=== PATIENT | female | born 1995 | race Caucasian/White ===

== ENCOUNTER → 2017-12-30 16:44 | Outpatient (CLI) | payer OTHER, SELFPAY ==
--- NOTE | 2017-12-30 16:52 | CT_ITS ---
CT Abdomen And Pelvis W/ Contrast INDICATION: RLQ PAIN X 1.5 WEEKS WITH NAUSEA, PT HAS NUVARING COMPARISON: None TECHNIQUE: Axial CT imaging of the abdomen and pelvis with oral and intravenous contrast. Oral and sagittal reformatted images. Radiation dose optimization technique applied. FINDINGS: Visualized lung bases are clear. The heart size is normal. The liver, gallbladder, spleen, adrenal glands, and pancreas are unremarkable. The kidneys enhance contrast symmetrically bilaterally and I without evidence of hydronephrosis. Bowel loops are nondistended. Appendix is unremarkable. Oral contrast material is seen throughout the nondistended small bowel loops extending into the proximal colon. Large fecal material is seen throughout colon. A NuvaRing is present in the vaginal canal. There is no evidence of free air or free fluid. The osseous structures are grossly unremarkable. CT/Abdomen/Pelvis WITH Contrast IMPRESSION: No convincing CT evidence of acute intra-abdominal or pelvic pathology. Normal appendix. at 1945 Reported and signed by: Amena Rosales MD Electronically Signed: Amena Rosales MD at 18:44 EST Tel , Service support ,
[2017-12-30 17:23] LABS: ALB/GLOB Ratio 0.9 RATIO (0.9-2.4); AST(SGOT) 17 U/L (15-37); Alanine Aminotransfer ALT/SGPT 19 U/L (13-56); Albumin, Serum 3.7 g/dL (3.2-5.0); Alkaline Phosphatase 55 U/L (45-117); Anion Gap 7 (5-15); BUN 11 mg/dL (7-18); BUN/Creat Ratio 14.9 RATIO (10-20); CRP 4.56 mg/L (0.0-3.0); Calcium,Total 8.7 mg/dL (8.5-10.1); Chloride 105 mmol/L (98-107); Creatinine, Serum 0.74 mg/dL (0.55-1.02); EST Glomerular Filtration Rate 103 mL/min (>60); Est Glom Filt Rate - Afr Amer 125 mL/min (>60); Globulin 4.1 g/dL (2.2-4.2); Glucose 93 mg/dL (74-106); Potassium 3.7 mmol/L (3.5-5.1); Protein, Total 7.8 g/dL (6.4-8.2); Sodium Level 137 mmol/L (136-145)
[2017-12-30 17:38] LABS: Absolute Lymphocyte Count 1.56 X10^3/ul (0.83-4.51); Absolute Neutrophil Count 2.4 X10^3/uL (2.0-7.7); Basophil# 0.02 X10^3/uL; Basophil% 0.4 % (0-1); Eosinophil# 0.07 X10^3/uL; Eosinophils% 1.6 % (0-5); Hematocrit 38.9 % (37-47); Hemoglobin 13.4 g/dl (12.0-15.0); Lymphocyte # 1.56 X10^3/ul (4.0); Lymphocyte % 34.8 % (19-41); Mean Corp Hgb Conc 34.4 g/gl (32-36); Mean Corpuscular Hgb 32.1 pg (27.0-32.0); Mean Corpuscular Volume 93.3 fL (81-99); Mean Platelet Vol. 9.7 fl (6.2-12.0); Monocyte# 0.39 X10^3/uL; Monocyte% 8.7 % (0-10); Neutrophil # 2.44 X10^3/uL (2.7-7.7); Neutrophil % 54.5 % (47-70); Platelet Count 215 K/mm3 (150-450); RBC Distribution Width CV 12.3 % (11.6-14.6); RBC Distribution Width SD 41.4 fl (35.1-43.9); Red Blood Count 4.17 M/mm3 (4.2-5.4); White Blood Count 4.5 K/mm3 (4.4-11.0)
[2017-12-30 17:47] LABS: POSITIVE COUNT NO; POSITIVE DIFFERENTIAL NO; POSITIVE MORPHOLOGY NO
[2017-12-30 17:48] LABS: Erythrocyte Sedimentation Rate 8 mm/hr (0-20)
== END ==
PROVIDERS: Family Provider Internal Medicine; PCP Internal Medicine; Visit Provider Internal Medicine
DX: R10.31 Right lower quadrant pain (principal)
CPT/HCPCS: 36415; 74177; 80053; 85025; 85652; 86140; Q9967

== ENCOUNTER 2022-10-21 04:25 | Inpatient (IN) | payer OTHER, SELFPAY ==
[2022-10-21] VITALS (79 sets, daily range): BP systolic 88–168; BP diastolic 45–99; PULSE 64–137; TEMP 36.1–37.2; O2SAT 89–100; BMI 29.0
[2022-10-21] MEDS: Lactated Ringers 1,000 ML 200 ML IV ×4 (05:16→21:25)
[2022-10-21 05:32] LABS: Absolute Lymphocyte Count 1.85 X10^3/uL (0.83-4.51); Absolute Neutrophil Count 7.1 X10^3/uL (2.0-7.7); Basophil# 0.04 X10^3/uL; Basophil% 0.4 % (0-1); Eosinophil# 0.06 X10^3/uL; Eosinophils% 0.6 % (0-5); Hematocrit 31.8 % (37-47); Hemoglobin 10.6 g/dL (12.0-15.0); Lymphocyte # 1.85 X10^3/ul (0.83-4.51); Mean Corp Hgb Conc 33.3 g/dL (32-36); Mean Corpuscular Hgb 31.5 pg (27.0-32.0); Mean Corpuscular Volume 94.6 fL (81-99); Monocyte# 0.67 X10^3/uL; Monocyte% 6.9 % (0-10); NRBC Flagged by Analyzer 0 % (0-5); Neutrophil # 7.07 X10^3/uL (2.7-7.7); Neutrophil % 72.6 % (47-70); Platelet Count 160 K/mm3 (150-450); RBC Distribution Width CV 12.8 % (11.6-14.6); RBC Distribution Width SD 44.4 fl (35.1-43.9); Red Blood Count 3.36 M/mm3 (4.2-5.4); White Blood Count 9.7 K/mm3 (4.4-11.0)
[2022-10-21] MEDS: Oxytocin 15 Units/NS 250ml 15 UNITS/250 ML IV.SOLN 2 UNITS IV (08:06)
--- NOTE | 2022-10-21 08:34 | HP.PCM.OB_ITS ---
HPI - General General Date of Admission: 10/21/22 HPI Narrative PHILLIP SINGH, is a 27 F @ 40.6 weeks who presents with spontaneous rupture membranes at approximately 3 AM on 10/21/2022 thick meconium. Patient complaining of lower back pain. PFSH [facility] Medical History Asthma Home Medications no.58-iron bisglycinate 10 mg iron-folic acid 400 mcg capsule 1 cap PO DAILY 10/21/22 [History Last Taken 10/20/22] Allergy/AdvReac Type Severity Reaction Status Date / Time Environmental Allergies: Allergy Rash Verified 10/21/22 04:41 Uncoded [fragrances] Social History Smoking Status: Never smoker alcohol intake: current History Elective abortions Hx Para 0 Spontaneous abortions Hx # Term Pregnancies Ectopic pregnancies Hx # Pregnancies Multiple births # of living children NST FHR Rate Baby A Baseline: 140 Variability:: Moderate Accelerations:: 15 x 15 Decelerations:: None NST Reactive:: Yes FHR Category:: Category I Uterine Activity:: 2-5 Vital Signs Vital Signs Vital Signs: 10/21/22 04:28 10/21/22 04:28 10/21/22 04:28 Temperature Temperature Source Pulse Rate 76 Blood Pressure 128/88 H BP Systolic 128 BP Diastolic 88 Pulse Ox 97 10/21/22 04:28 10/21/22 04:28 10/21/22 04:28 Temperature 98.0 F Temperature Source Temporal Pulse Rate Blood Pressure BP Systolic BP Diastolic Pulse Ox 98 10/21/22 06:25 10/21/22 06:26 10/21/22 06:26 Temperature Temperature Source Pulse Rate 71 Blood Pressure 110/64 BP Systolic 110 BP Diastolic 64 Pulse Ox 98 10/21/22 07:08 10/21/22 07:08 10/21/22 07:18 Temperature 98.4 F Temperature Source Temporal Pulse Rate Blood Pressure 115/77 BP Systolic 115 BP Diastolic 77 Pulse Ox 10/21/22 07:18 10/21/22 07:19 10/21/22 07:19 Temperature Temperature Source Pulse Rate 75 78 Blood Pressure BP Systolic BP Diastolic Pulse Ox 99 10/21/22 07:21 10/21/22 07:21 10/21/22 08:11 Temperature 98.1 F Temperature Source Temporal Pulse Rate Blood Pressure 114/71 BP Systolic 114 BP Diastolic 71 Pulse Ox 10/21/22 08:11 10/21/22 08:12 10/21/22 08:12 Temperature Temperature Source Pulse Rate 74 78 Blood Pressure BP Systolic BP Diastolic Pulse Ox 98 10/21/22 08:11 Temperature 98.1 F Temperature Source Pulse Rate Blood Pressure BP Systolic BP Diastolic Pulse Ox Weight Weight: 81.6 kg Body Mass Index (BMI) 29.0 Physical Exam Const alert and oriented x3 General Appearance: cooperative HEENT normocephalic GI GI Narrative: Gravid, non tender to palpation. OB / External & Speculum: external exam normal Extremity normal to inspection Skin no rashes or lesions noted Neuro oriented x3 and CN's II-XII intact bilaterally Psych Appearance: grossly normal Labs Labs Labs: Blood Type A POSITIVE Antibody Screen NEGATIVE Hct 31.8 % (37-47) L Hgb 10.6 g/dL (12.0-15.0) L Assessment & Plan (1) Meconium in amniotic fluid affecting management of mother: (2) 40 weeks gestation of : (3) SROM (spontaneous rupture of membranes): PLAN: Plan Admit to L&D [place] FHR/TOCO Epidural if requested for pain Monitor VS Anticipate peds for delivery due to meconium pitocin for augmentation
[2022-10-21] MEDS: LACTATED RINGERS 500 ML 999 ML IV ×2 (09:09→14:11)
[2022-10-21] MEDS: Ondansetron 4 MG/2 ML Vial IV ×2 (09:51→16:03)
[2022-10-21] MEDS: fentaNYL-bupivacaine (epidural) 100 ML BAG EPIDURAL ×3 (10:30→19:31)
--- NOTE | 2022-10-21 20:50 | PCM.PN.BLA ---
Progress Note pt seen at bedside, epidural adequate- does not feel pain- only minimal pressure with pushing. descent noted with pushing. Pitocin at 4mu. anticipate .
[2022-10-21] MEDS: Methylergonovine 0.2 MG/ML Ampul IM (21:54)
[2022-10-21] MEDS: miSOPROStol 200 MCG Tablet 1000 MCG PO (22:00)
[2022-10-21] MEDS: Carboprost Tromethamine 250 MCG/ML Ampul IM (22:04)
--- NOTE | 2022-10-21 22:16 | EX.PCM.OBRPT ---
Vaginal Delivery Maternal Presentation Maternal Presentation: Spontaneous Rupture of Membranes Maternal Presentation: 40.6 weeks, meconium fluid- SROM early labor Operative Information Date of Procedure: 10/21/22 Pre-Operative Diagnosis: 40.6 weeks gestation, SROM, meconium fluid Post-Operative Diagnosis: same, live male Surgery / Procedure Performed: Spontaneous Vaginal Delivery Type of Anesthesia: Epidural Drain: Cd to straight drain Estimated Blood Loss: 600 Time of Delivery: 21:45 Findings Description of Procedure: Patient progressed to fully dilated. Good maternal pushing efforts delivered the head-'s mouth and nose were suctioned. Followed by the anterior shoulder and posterior shoulder. Slow delivery of the infant's trunk and arms but delivered without complication. was placed on the mother's chest immediate cord clamping was performed and handed to pediatric team. Pitocin was started and placenta was delivered with gentle traction. Placenta was delivered intact. No vaginal or perineal lacerations appreciated. Small right vaginal wall cyst appreciated approximately 3 cm hard to tell if this was a hematoma it was monitored and there was no expansion I do feel that it was just a cyst. At this time there was some brisk bleeding and uterine atony appreciated IM Methergine was given in the left thigh fundal massage was continued. At this time Cytotec and Hemabate were brought in the room. Ultrasound was performed did not appear to be any retained products uterine exploration performed I did not feel any products. Brisk bleeding still noted Cytotec 1000 mcg was given per rectum. IM Hemabate given in the lower uterine segment. Bleeding immediately slowed estimated blood loss approximately 600 cc. Second IV line was started. CBC drawn and we will repeat a CBC in the morning. Presentation: Vertex Amniotic Membrane Rupture Type: Spontaneous Amniotic Fluid Description: Thick meconium Placental Delivery Description: Expressed Placenta Disposition: [facility] Specimen(s) Removed: placenta Cord Vessel Description: 3 Vessels Cord Entanglement: None A Gender: Male (1 minute): 6 (5 minute): 9 Delayed Cord Clamping: No Post Vaginal Delivery Medications Given After Delivery: IV Pitocin, IM Methergin, IM Hemabate and - (cytotec) Episiotomy Description: None Laceration: None Complication Complications: None
[2022-10-21 22:23] LABS: Absolute Lymphocyte Count 1.34 X10^3/uL (0.83-4.51); Absolute Neutrophil Count 15.2 X10^3/uL (2.0-7.7); Basophil# 0.03 X10^3/uL; Basophil% 0.2 % (0-1); Eosinophil# 0.09 X10^3/uL; Eosinophils% 0.5 % (0-5); Hematocrit 32.4 % (37-47); Hemoglobin 10.9 g/dL (12.0-15.0); Lymphocyte # 1.34 X10^3/ul (0.83-4.51); Lymphocyte % 7.6 % (19-41); Mean Corp Hgb Conc 33.6 g/dL (32-36); Mean Platelet Vol. 10.6 fl (6.2-12.0); Monocyte# 0.92 X10^3/uL; Monocyte% 5.2 % (0-10); NRBC Flagged by Analyzer 0 % (0-5); Platelet Count 151 K/mm3 (150-450); RBC Distribution Width SD 44.2 fl (35.1-43.9); Red Blood Count 3.41 M/mm3 (4.2-5.4); White Blood Count 17.7 K/mm3 (4.4-11.0)
[2022-10-22] VITALS (14 sets, daily range): BP systolic 104–126; BP diastolic 57–68; PULSE 82–113; RESP 14–18; TEMP 36.1–37.2; O2SAT 95–98
[2022-10-22 06:10] LABS: Hematocrit 24.7 % (37-47); Hemoglobin 8.5 g/dL (12.0-15.0); Mean Corp Hgb Conc 34.4 g/dL (32-36); Mean Corpuscular Hgb 32.4 pg (27.0-32.0); Mean Corpuscular Volume 94.3 fL (81-99); Mean Platelet Vol. 10.4 fl (6.2-12.0); Platelet Count 122 K/mm3 (150-450); RBC Distribution Width CV 12.9 % (11.6-14.6); RBC Distribution Width SD 43.8 fl (35.1-43.9); Red Blood Count 2.62 M/mm3 (4.2-5.4); White Blood Count 17.3 K/mm3 (4.4-11.0)
[2022-10-22] MEDS: Ibuprofen 600 MG Tablet PO ×2 (10:24→20:37)
[2022-10-22 12:20] LABS: Hematocrit 23.6 % (37-47); Mean Corp Hgb Conc 33.9 g/dL (32-36); Mean Corpuscular Hgb 32.3 pg (27.0-32.0); Mean Corpuscular Volume 95.2 fL (81-99); Mean Platelet Vol. 10.3 fl (6.2-12.0); Platelet Count 127 K/mm3 (150-450); RBC Distribution Width SD 44.9 fl (35.1-43.9); Red Blood Count 2.48 M/mm3 (4.2-5.4); White Blood Count 15.1 K/mm3 (4.4-11.0)
[2022-10-22] MEDS: Acetaminophen 500 MG Tablet 1000 MG PO (16:56)
--- NOTE | 2022-10-22 17:19 | PN.OBGYN_ITS ---
Subjective Subjective Pain well controlled. Average lochia. Objective Data Objective Data Vital Signs: Vital Signs Temp Pulse Resp BP Pulse Ox O2 Del Method 98 F 95 16 113/57 L 98 Room Air 10/22/22 17:00 10/22/22 17:00 10/22/22 17:00 10/22/22 17:00 10/22/22 12:30 10/22/22 17:00 Oxygen Delivery Method Room Air Weight: 81.6 kg Body Mass Index (BMI) 29.0 Intake & Output: Intake and Output for Last 24 Hours 10/20/22 10/21/22 10/22/22 23:59 23:59 23:59 Intake Total 4793.33 / 4793.33 Output Total 1100 / 1100 800 / 800 Balance 3693.33 / 3693.33 -800 / -800 Lab / Micro Data Result Diagrams: 10/22/22 12:05 Labs: Laboratory Results - last 24 hr 10/21/22 22:11: WBC 17.7 H, RBC 3.41 L, Hgb 10.9 L, Hct 32.4 L, MCV 95.0, MCH 32.0, MCHC 33.6, RDW Std Deviation 44.2 H, RDW Coeff of Sebastian 13.0, Plt Count 151, MPV 10.6, Immature Gran % (Auto) 0.500, Neut % (Auto) 86.0 H, Lymph % (Auto) 7.6 L, [place] % (Auto) 5.2, Eos % (Auto) 0.5, Baso % (Auto) 0.2, Absolute Neuts (auto) 15.2 H, Absolute Lymphs (auto) 1.34, Nucleated RBC % 0 10/22/22 06:00: WBC 17.3 H, RBC 2.62 L, Hgb 8.5 L, Hct 24.7 L, MCV 94.3, MCH 32.4 H, MCHC 34.4, RDW Std Deviation 43.8, RDW Coeff of Sebastian 12.9, Plt Count 122 L, MPV 10.4 10/22/22 12:05: WBC 15.1 H, RBC 2.48 L, Hgb 8.0 L, Hct 23.6 L, MCV 95.2, MCH 32.3 H, MCHC 33.9, RDW Std Deviation 44.9 H, RDW Coeff of Sebastian 13.0, Plt Count 127 L, MPV 10.3 Physical Exam Const alert and no apparent distress Narrative: Fundus firm, below umbilicus. Assessment & Plan (1) (spontaneous vaginal delivery): PLAN: day 1 status post vaginal delivery. Patient is doing well. is breast-feeding. Moderate acute blood loss anemia appropriate for blood loss during delivery. Hemoglobin is stable. Okay to DC IV. Patient is tolerating anemia well. Likely discharge home tomorrow
[2022-10-23] MEDS: Acetaminophen 500 MG Tablet 1000 MG PO (01:29)
[2022-10-23 01:34] VITALS: BP 108/70; PULSE 81; RESP 16; TEMP 36.3; O2SAT 97
[2022-10-23 01:39] VITALS: BP 108/70; PULSE 75
[2022-10-23] MEDS: Ibuprofen 600 MG Tablet PO (06:30)
--- NOTE | 2022-10-23 08:54 | PCM.PN.OB ---
Subjective Subjective Patient seen at bedside. . Feeling good. Denies any headache, dizziness, SOB or CP. Ambulating and voiding without difficulty. Lochia decreasing. Desires discharge home today. Objective Data Objective Data Vital Signs: Vital Signs Temp Pulse Resp BP Pulse Ox O2 Del Method 97.3 F L 94 18 113/72 97 Room Air 10/23/22 15:00 10/23/22 15:11 10/23/22 15:00 10/23/22 15:11 10/23/22 09:17 10/23/22 09:17 Oxygen Delivery Method Room Air Weight: 179 lb 14.355 oz Body Mass Index (BMI) 29.0 Intake & Output: Intake and Output for Last 24 Hours 10/21/22 10/22/22 10/23/22 23:59 23:59 23:59 Intake Total 4793.33 / 4793.33 Output Total 1100 / 1100 800 / 800 Balance 3693.33 / 3693.33 -800 / -800 Lab / Micro Data Result Diagrams: 10/22/22 12:05 ROS Eyes Eyes: Denies blurry vision, change in vision or spots in vision ENT HEENT: Denies dizziness or headache(s) Cardiovascular Cardiovascular: Denies abdominal pain, chest pain or dyspnea Respiratory/Chest Respiratory/Chest: Denies cough, dyspnea, shortness of breath at rest or shortness of breath with exertion Gastrointestinal Gastrointestinal: Denies abdominal pain, diarrhea or vomiting Genitourinary Genitourinary: Denies change in urinary stream, difficulty urinating or dysuria Musculoskeletal Musculoskeletal: Reports none Integumentary Integumentary: Denies rash Neurologic Neurologic: Denies dizziness, headache(s), memory loss or weakness Physical Exam Const alert and no apparent distress General Appearance: cooperative and comfortable Exam Limitations: no limitations HEENT normocephalic Eyes General Eye: normal appearance of both eyes Neck full ROM General: normal visual inspection Chest Chest: symmetrical chest wall rise Resp normal respiratory effort and normal air movement Effort and Inspection: symmetric chest movement Auscultation: clear to auscultation bilaterally Cardio regular rate and regular rhythm GI normal to inspection, nondistended, normoactive bowel sounds Back/Spine normal ROM Extremity full ROM and no calf tenderness General Extremity: normal exam except as noted Skin no rashes or lesions noted Neuro CN's II-XII intact bilaterally Psych mental status grossly normal Assessment & Plan (1) (spontaneous vaginal delivery): (2) Care and examination of lactating mother: PLAN: Plan PPD 2 Routine care support Start oral iron supplementation and take daily D/C home with follow up in office
--- NOTE | 2022-10-23 08:57 | DCINST_ITS ---
Discharge Instructions Diet Discharge Diet: No restrictions Activity Discharge Activity: Return to Normal Activity, May Shower and May Take a Tub Bath May resume sexual activity in: 4-6 weeks Weight Bearing Status: Weight bearing as tolerated Dressing / Incision Call your doctor if you observe: Inability to urinate, Using more than 1 pad per hour, Shortness of breath, Dizziness, Swelling in the ankles, Chest pain, Calf discomfort and Uncontrolled pain Follow Up Care When: Within 10 days Test Results: Test results from this visit will be discussed in further detail at your follow- up appointment, if applicable. Discharge Plan Admission Admit Date/Time: 10/21/22 04:25 Primary Reason for Your Visit: Labor and Delivery Attending Provider: Rebeca Allen Primary Care Provider: Stephanie Ibarra Instructions Patient Instructions: After a Vaginal Discharge Orders/Prescriptions Prescriptions: No Action 10-400 mg-mcg Capsule 1 cap PO DAILY Referrals / Follow Up: Stephanie Ibarra DO [Primary Care Provider] - Disposition Disposition (needs filled in before D/C Order can be placed): Home, Self Care
[2022-10-23 09:16] VITALS: BP 101/62; PULSE 85
[2022-10-23 09:17] VITALS: BP 101/2; PULSE 85; PULSE 87; RESP 18; TEMP 36.5; O2SAT 97
--- NOTE | 2022-10-23 14:15 | NURSING ---
Report given to Joe Nobles RN who will assume care of this patient at this time.
[2022-10-23 15:00] VITALS: BP 113/72; PULSE 94; RESP 18; TEMP 36.3
[2022-10-23 15:11] VITALS: BP 113/72; PULSE 94
== END 2022-10-23 15:50 | disposition home or self-care (01) | DRG 806 ==
LOC: WPOUT 04:26 → WP 04:26 → WPOUT 04:27 → WP 04:30
PROVIDERS: Advanced Practice Midwife; Obstetrics & Gynecology; Admitting Provider Obstetrics & Gynecology; PCP Internal Medicine; Visit Provider Obstetrics & Gynecology
DX: O77.0 Labor and delivery complicated by meconium in amniotic fluid (principal); Z37.0 Single live birth; O72.1 Other immediate postpartum hemorrhage; O48.0 Post-term pregnancy; Z3A.40 40 weeks gestation of pregnancy
CPT/HCPCS: 59025; 59050; 85025; 85027; 86850; 86900; 86901; 99218; J7120; G0378; J2405

== ENCOUNTER 2024-08-06 17:40 | Outpatient (CLI) | payer OTHER, SELFPAY ==
[2024-08-06 17:52] VITALS: TEMP 36.4
[2024-08-06 17:55] VITALS: BP 105/68; PULSE 89
[2024-08-06 18:01] VITALS: BMI 28.4
[2024-08-06 21:52] VITALS: BP 117/71; PULSE 85; RESP 18; TEMP 36.7
--- NOTE | 2025-01-03 20:20 | OB.TRI.HP_ITS ---
HPI - General General Date of Service: 11/05/24 HPI Narrative PHILLIP SINGH, is a 29 F who presents with irregular contractions. PFSH [facility] Medical History (Updated 01/03/25 @ 20:21 by Michelle Cee CNM) SROM (spontaneous rupture of membranes) 40 weeks gestation of Care and examination of lactating mother (spontaneous vaginal delivery) Meconium in amniotic fluid affecting management of mother Asthma Home Medications ?Medication ?Instructions ?Recorded ?Last Taken ?Type no.58-iron bisglycinate 1 cap PO DAILY pregna ncy 10/21/22 08/06/24 08:00 History 10 mg iron-folic acid 400 mcg 1 cap capsule Allergy/AdvReac Type Severity Reaction Status Date / Time Environmental Allergies: Allergy Rash Verified 08/07/24 06:09 Uncoded (fragrances) Surgical History (Updated 08/06/24 @ 20:53 by Mariela Ortiz) [place] teeth extracted Social History Smoking Status: Never smoker alcohol intake: current History Elective abortions Hx Para 1 Spontaneous abortions Hx # Term Pregnancies Ectopic pregnancies Hx # Pregnancies Multiple births # of living children NST FHR Rate Baby A Baseline: 145 Variability:: Moderate Accelerations:: 15 x 15 Decelerations:: None NST Reactive:: Yes Uterine Activity:: Irregular Assessment & Plan (1) False labor: PLAN: Plan 1) False labor 2) D/C home 3) Labor precautions reviewed and when to call.
== END 2024-08-06 22:15 | disposition home or self-care (01) ==
LOC: WPOUT 17:46 → WP 17:47
PROVIDERS: PCP Internal Medicine; Referring Provider Advanced Practice Midwife; Visit Provider Advanced Practice Midwife
DX: O47.9 False labor, unspecified (principal); Z3A.00 Weeks of gestation of pregnancy not specified
CPT/HCPCS: 59025; 59050; 99221; G0378

== ENCOUNTER 2024-08-07 05:36 | Inpatient (IN) | payer OTHER, SELFPAY ==
[2024-08-07] VITALS (19 sets, daily range): BP systolic 97–119; BP diastolic 55–84; PULSE 76–103; RESP 16; TEMP 36.2–36.7; O2SAT 97–100; BMI 28.4
[2024-08-07] MEDS: Oxytocin 15 Units/NS 250ml 15 UNITS/250 ML IV.SOLN 334 UNITS IV (05:55)
[2024-08-07 06:00] LABS: Absolute Lymphocyte Count 1.18 X10^3/uL (0.83-4.51); Absolute Neutrophil Count 11.7 X10^3/uL (2.0-7.7); Basophil# 0.03 X10^3/uL; Basophil% 0.2 % (0-1); Hematocrit 33.7 % (37-47); Hemoglobin 12.2 g/dL (12.0-15.0); Lymphocyte # 1.18 X10^3/ul (0.83-4.51); Lymphocyte % 8.8 % (19-41); Mean Corp Hgb Conc 36.2 g/dL (32-36); Mean Corpuscular Hgb 33.8 pg (27.0-32.0); Mean Corpuscular Volume 93.4 fL (81-99); Mean Platelet Vol. 9.6 fl (6.2-12.0); Monocyte% 3.7 % (0-10); NRBC Flagged by Analyzer 0 % (0-5); Neutrophil # 11.68 X10^3/uL (2.7-7.7); Neutrophil % 86.8 % (47-70); Platelet Count 157 K/mm3 (150-450); RBC Distribution Width CV 12.3 % (11.6-14.6); RBC Distribution Width SD 42.5 fl (35.1-43.9); Red Blood Count 3.61 M/mm3 (4.2-5.4); White Blood Count 13.5 K/mm3 (4.4-11.0)
--- NOTE | 2024-08-07 06:04 | HP.PCM.OB_ITS ---
HPI - General General Date of Admission: 08/07/24 HPI Narrative PHILLIP SINGH, is a 29 F who presents at 40w0d in active labor. Maternal Data Information EDUARDA Calculator Estimated Delivery Date Method Current WG Current Estimate 08/07/24 Manual 40w 0d PFSH PFSH Medical History (Updated 08/07/24 @ 06:07 by Michelle Cee CNM) 40 weeks gestation of Care and examination of lactating mother (spontaneous vaginal delivery) SROM (spontaneous rupture of membranes) Meconium in amniotic fluid affecting management of mother Asthma Home Medications ?Medication ?Instructions ?Recorded ?Last Taken ?Type no.58-iron bisglycinate 1 cap PO DAILY 10/21/22 08/06/24 08:00 History 10 mg iron-folic acid 400 mcg 1 cap capsule Allergy/AdvReac Type Severity Reaction Status Date / Time Environmental Allergies: Allergy Rash Verified 08/06/24 18:34 Uncoded (fragrances) Surgical History (Updated 08/06/24 @ 20:53 by Mariela Ortiz) [place] teeth extracted Social History Smoking Status: Never smoker alcohol intake: current History Elective abortions Hx Para 1 Spontaneous abortions Hx # Term Pregnancies Ectopic pregnancies Hx # Pregnancies Multiple births # of living children NST FHR Rate Baby A Baseline: 125 Variability:: Moderate Accelerations:: 15 x 15 Decelerations:: Variable FHR Category:: Category II Uterine Activity:: every 2 minutes, strong Vital Signs Vital Signs Vital Signs: Weight Weight: 176 lb Body Mass Index (BMI) 28.4 Labs Labs Labs: Blood Type A POSITIVE Antibody Screen NEGATIVE Hct 33.7 % (37-47) L Hgb 12.2 g/dL (12.0-15.0) Syphilis Total Ab Pending GBS negative HepC negative HBsAG negative RPR negative Rubella immune HIV negative A positive GC/CT negative 1hr GCT normal Assessment & Plan (1) Active labor at term: PLAN: Plan 1) Admit to labor and delivery 2) Routine labs 3) Continuous EFM 4) Pain management upon request 5) Dr. Seo collaborative physician and notified of patient status, above assessment, and plan.
--- NOTE | 2024-08-07 06:08 | EX.PCM.OBRPT ---
Assessment & Plan (1) Vaginal delivery: (2) Precipitous delivery: Maternal Data Information EDUARDA Calculator Estimated Delivery Date Method Current WG Current Estimate 08/07/24 Manual 40w 0d Vaginal Delivery Maternal Presentation Maternal Presentation: Active Labor and Spontaneous Rupture of Membranes Operative Information Date of Procedure: 08/07/24 Pre-Operative Diagnosis: Active labor, SROM Post-Operative Diagnosis: , precipitous delivery Surgery / Procedure Performed: Spontaneous Vaginal Delivery Type of Anesthesia: None Estimated Blood Loss: 200ml Time of Delivery: 05:54 Findings Description of Procedure: Progressed to complete with urge to push shortly after arrival to unit, unmedicated. of viable male over intact perineum. APGARS 8,9 respectively. Infant head delivered with body immediately forthcoming. Placed on maternal abdomen, strong cry. Mouth and nares suctioned for secretions. Pitocin started for active 3rd stage management. Cord doubly clamped and cut by FOB after pulsations ceased, delayed cord clamping. Placenta delivered intact via [place]lin, 3 vessel cord intact. Perineum inspected and intact Fundus firm and hemostasis achieved. EBL 300ml. Mom and baby stable, planning to breastfeed. Family bonding well. notified of delivery. Presentation: Vertex Amniotic Membrane Rupture Type: Spontaneous Amniotic Fluid Description: Clear Placental Delivery Description: Spontaneous Placenta Disposition: [facility] Cord Vessel Description: 3 Vessels Cord Entanglement: None Infant A Gender: Male (1 minute): 8 (5 minute): 9 Delayed Cord Clamping: Yes Post Vaginal Delivery Medications Given After Delivery: IV Pitocin Episiotomy Description: None Laceration: None Complication Complications: None
[2024-08-07] MEDS: Oxytocin 15 Units/NS 250ml 15 UNITS/250 ML IV.SOLN 83 UNITS IV (06:45)
[2024-08-07] MEDS: Ibuprofen 600 MG Tablet PO ×2 (07:43→14:52)
[2024-08-07 07:53] LABS: Syphilis Antibodies Non-reactive
[2024-08-07] MEDS: Acetaminophen 500 MG Tablet 1000 MG PO ×2 (13:14→19:20)
--- NOTE | 2024-08-07 19:43 | OB.TRI.NOTE ---
HPI - General General Date of Admission: 08/06/24 Date of Service: 08/06/24 HPI Narrative PHILLIP SINGH, is a 29 F who presents Maternal Data Information EDUARDA Calculator Estimated Delivery Date Method Current WG Current Estimate 08/07/24 Manual 40w 0d PFSH PFSH Medical History (Updated 08/07/24 @ 06:08 by Michelle Cee CNM) SROM (spontaneous rupture of membranes) 40 weeks gestation of Care and examination of lactating mother (spontaneous vaginal delivery) Meconium in amniotic fluid affecting management of mother Asthma Home Medications ?Medication ?Instructions ?Recorded ?Last Taken ?Type no.58-iron bisglycinate 1 cap PO DAILY 10/21/22 08/06/24 08:00 History 10 mg iron-folic acid 400 mcg 1 cap capsule Allergy/AdvReac Type Severity Reaction Status Date / Time Environmental Allergies: Allergy Rash Verified 08/07/24 06:09 Uncoded (fragrances) Surgical History (Updated 08/06/24 @ 20:53 by Mariela Ortiz) [place] teeth extracted Social History Smoking Status: Never smoker alcohol intake: current History Elective abortions Hx Para 1 Spontaneous abortions Hx # Term Pregnancies Ectopic pregnancies Hx # Pregnancies Multiple births # of living children
[2024-08-08 06:15] VITALS: BP 108/71; PULSE 79; RESP 16; TEMP 36.1
[2024-08-08] MEDS: Ibuprofen 600 MG Tablet PO (06:20)
[2024-08-08 06:30] LABS: Absolute Neutrophil Count 6.3 X10^3/uL (2.0-7.7); Basophil# 0.03 X10^3/uL; Basophil% 0.4 % (0-1); Eosinophils% 1.2 % (0-5); Hemoglobin 10.7 g/dL (12.0-15.0); Lymphocyte % 18.8 % (19-41); Mean Corp Hgb Conc 34.5 g/dL (32-36); Mean Corpuscular Hgb 32.7 pg (27.0-32.0); Mean Corpuscular Volume 94.8 fL (81-99); Mean Platelet Vol. 9.5 fl (6.2-12.0); Monocyte# 0.48 X10^3/uL; Monocyte% 5.6 % (0-10); NRBC Flagged by Analyzer 0 % (0-5); Neutrophil # 6.26 X10^3/uL (2.7-7.7); Neutrophil % 73.3 % (47-70); Platelet Count 141 K/mm3 (150-450); RBC Distribution Width CV 12.6 % (11.6-14.6); RBC Distribution Width SD 43.8 fl (35.1-43.9); Red Blood Count 3.27 M/mm3 (4.2-5.4); White Blood Count 8.5 K/mm3 (4.4-11.0)
[2024-08-08] MEDS: Acetaminophen 500 MG Tablet 1000 MG PO (08:09)
[2024-08-08 08:12] VITALS: BP 110/69; PULSE 81; RESP 16; TEMP 36.7; O2SAT 96
--- NOTE | 2024-08-08 08:58 | PN.OBGYN_ITS ---
Subjective Subjective Pain well-controlled. Average lochia Objective Data Objective Data Vital Signs: Vital Signs Temp Pulse Resp BP Pulse Ox O2 Del Method 98.0 F 81 16 110/69 96 Room Air 08/08/24 08:12 08/08/24 08:12 08/08/24 08:12 08/08/24 08:12 08/08/24 08:12 08/08/24 08:12 Oxygen Delivery Method Room Air Weight: 79.832 kg Body Mass Index (BMI) 28.4 Intake & Output: Intake and Output for Last 24 Hours 08/06/24 08/07/24 08/08/24 23:59 23:59 23:59 Intake Total 500 / 500 Output Total 1000 / 1000 Balance -500 / -500 Lab / Micro Data 08/08/24 06:14 Labs: Laboratory Results - last 24 hr 08/08/24 06:14: WBC 8.5, RBC 3.27 L, Hgb 10.7 L, Hct 31.0 L, MCV 94.8, MCH 32.7 H, MCHC 34.5, RDW Std Deviation 43.8, RDW Coeff of Sebastian 12.6, Plt Count 141 L, MPV 9.5, Immature Gran % (Auto) 0.700, Neut % (Auto) 73.3 H, Lymph % (Auto) 18.8 L, [place] % (Auto) 5.6, Eos % (Auto) 1.2, Baso % (Auto) 0.4, Absolute Neuts (auto) 6.3, Absolute Lymphs (auto) 1.60, Nucleated RBC % 0 Physical Exam Narrative Awake, alert, no acute distress Assessment & Plan (1) Vaginal delivery: PLAN: day #1 status post vaginal delivery. Patient is doing well. Desires discharge home today. is breast-feeding and doing well. Follow-up in the office in 1 week or as needed.
--- NOTE | 2024-08-08 09:00 | DCINST_ITS ---
Discharge Instructions Diet Discharge Diet: No restrictions Activity May resume sexual activity in: 6 weeks Dressing / Incision Call your doctor if your incision/area has: Continuous Slow Oozing, Sudden Increased Bleeding, Foul Smelling Discharge and Swelling at the incision site Call your doctor if you observe: Fever of 101 or Higher and Inability to urinate Follow Up Care Please Follow Up With: Michelle Cee CNM When: Follow up with our office in 1 and 6 weeks or as needed. call [phone] or send a [employer] message to schedule or with questions Test Results: Test results from this visit will be discussed in further detail at your follow- up appointment, if applicable. Discharge Plan Admission Admit Date/Time: 08/07/24 05:36 Primary Reason for Your Visit: Labor and vaginal delivery Attending Provider: Michelle Cee Primary Care Provider: Stephanie Ibarra Discharge Orders/Prescriptions Prescriptions: No Action 10-400 mg-mcg Capsule 1 cap PO DAILY Referrals / Follow Up: Stephanie Ibarra DO [Primary Care Provider] - Disposition Disposition (needs filled in before D/C Order can be placed): Home, Self Care
[2024-08-08 12:51] VITALS: BP 102/87; PULSE 90; RESP 16; TEMP 36.6; O2SAT 97
== END 2024-08-08 13:40 | disposition home or self-care (01) | DRG 807 ==
LOC: WPOUT 05:37 → WP 05:37
PROVIDERS: Admitting Provider Advanced Practice Midwife; PCP Internal Medicine; Referring Provider Advanced Practice Midwife; Visit Provider Advanced Practice Midwife
DX: O62.3 Precipitate labor (principal); Z37.0 Single live birth; O42.92 Full-term premature rupture of membranes, unspecified as to length of time between rupture and onset of labor; Z3A.40 40 weeks gestation of pregnancy
CPT/HCPCS: 59050; 85025; 86780; 86850; 86900; 86901; 99221; G0378